=== PATIENT | female | born 2000 | race Caucasian/White ===

== ENCOUNTER 2021-01-05 13:58 | Outpatient (REF) | payer OTHER, SELFPAY ==
[2021-01-06 18:57] LABS: C. trachomatis RNA TMA NOT DETECTED (NOT DETECTED); N. gonorrhoeae RNA TMA NOT DETECTED (NOT DETECTED)
== END 2021-01-05 13:59 | disposition home or self-care (01) ==
LOC: HO.LAB 13:58
PROVIDERS: PCP Pediatrics; Visit Provider Advanced Practice Midwife
DX: Z01.419 Encounter for gynecological examination (general) (routine) without abnormal findings (principal); Z11.3 Encounter for screening for infections with a predominantly sexual mode of transmission
CPT/HCPCS: 36415; 87491; 87591; 88142

== ENCOUNTER → 2021-01-16 14:48 | Outpatient (BNVA) | payer OTHER, SELFPAY | PROVIDERS: PCP Pediatrics; Visit Provider Advanced Practice Midwife | DX: Z30.46 Encounter for surveillance of implantable subdermal contraceptive (principal); Z30.011 Encounter for initial prescription of contraceptive pills | CPT/HCPCS: 11982 ==

== ENCOUNTER 2022-04-20 03:02 | Emergency (ER) | payer OTHER, SELFPAY ==
--- NOTE | ~2022-04-20 | CT_ITS ---
EXAMINATION: CT HEAD WITHOUT CONTRAST CLINICAL INFORMATION: Headache, presyncope COMPARISON: None TECHNIQUE: Contiguous axial imaging was performed from the skull base to vertex without intravenous administration of contrast. This CT examination was performed using dose optimization techniques as appropriate, variously including the following: *Automated exposure control *Adjustment of mA and/or kV according to patient size (this includes techniques or standardized protocols for targeted exams where dose is matched to indication/reason for exam; i.e. extremities or head) *Use of iterative reconstruction technique DLP: 761 mGy-cm FINDINGS: There is no evidence of acute intracranial hemorrhage or territorial infarction. No abnormal mass effect or midline shift is seen. Olea to white matter differentiation is well preserved. No extra-axial fluid collections are identified. The ventricles are normal in size. There is no abnormal attenuation within the brain parenchyma. The osseous structures and soft tissues are normal. The mastoid air cells and visualized portions of the paranasal sinuses are well aerated. CT/CT head/brain wo con IMPRESSION: No acute intracranial pathology.
--- NOTE | ~2022-04-20 | XR_ITS ---
EXAMINATION: XR CHEST CLINICAL INFORMATION: Cough COMPARISON: None TECHNIQUE: 2 views of the chest were obtained. FINDINGS: The lungs are clear with no focal consolidation. No evidence of pneumothorax, pulmonary edema, or pleural effusions. The cardiomediastinal silhouette is unremarkable. No acute osseous findings. XR/XR chest 2V IMPRESSION: No acute cardiopulmonary findings.
[2022-04-20 03:22] VITALS: BP 141/65; PULSE 92; RESP 20; TEMP 36.8; O2SAT 97; BMI 41.3
[2022-04-20 03:40] LABS: Basophils Percent Auto 0.5 % (0-2); Eosinophils Absolute Auto 0.2 X10*3/uL (0.0-0.4); Eosinophils Percent Auto 1.9 % (0-4); Hematocrit 42.2 % (37.0-47.0); Hemoglobin 13.8 g/dl (12.0-16.0); Imm Gran Abs Auto 0.01 X10*3/uL (0.00-0.03); Imm Gran Pct Auto 0.1 % (0.0-0.4); Lymphocytes Absolute Auto 1.6 X10*3/uL (1.2-4.9); MANUAL DIFF FLAG NO; Mean Corpuscular HGB Conc 32.7 g/dl (31.0-35.0); Mean Corpuscular Hemoglobin 30.1 pg (27.0-33.0); Mean Corpuscular Volume 92.1 fL (80.0-98.0); Mean Platelet Volume 10.2 fL (9.4-12.3); Monocytes Percent Auto 11.9 % (2-11); Neutrophils Absolute Auto 5.5 x10*3/uL (2.0-8.3); Neutrophils Percent Auto 66.6 % (45-73); Platelet Count 253 X10*3/uL (160-400); Red Blood Count 4.58 X10*6/uL (4.20-5.50); Red Cell Distribution Width 12.5 % (11.0-16.0); White Blood Count 8.3 X10*3/uL (4.8-10.8)
--- NOTE | 2022-04-20 03:43 | ECG_ITS ---
Test Reason : SYNCOPE Blood Pressure : / mmHG Vent. Rate : 081 BPM Atrial Rate : 081 BPM P-R Int : 146 ms QRS Dur : 070 ms QT Int : 370 ms P-R-T Axes : 030 005 028 degrees QTc Int : 429 ms Normal sinus rhythm Minimal voltage criteria for LVH, may be normal variant ( R in aVL ) Borderline ECG No previous ECGs available Referred By: Benita Ortega Electronically Signed By:Rigo Mao
[2022-04-20 03:53] LABS: IDNOW Serial# 16C4AD1C; Influenza A Negative (Negative); Influenza B2 Negative (Negative)
[2022-04-20 03:54] LABS: COVID-19 Test Negative (Negative)
[2022-04-20 04:00] LABS: Anion Gap 13 (12-20); Blood Urea Nitrogen 8 mg/dL (9-16); Calcium 9.6 mg/dL (8.4-10.2); Carbon Dioxide 25 mmol/L (22-29); Chloride 104 mmol/L (96-108); Creatinine Clr Calc Pharmacy 118.1; Estimated Glomerular Filt Rate > 60; Glucose Random 110 mg/dL (60-115); Potassium 3.9 mmol/L (3.3-5.1); Sodium 138 mmol/L (135-145)
[2022-04-20 04:06] VITALS: BP 146/86; PULSE 89; RESP 20; TEMP 37; O2SAT 98
[2022-04-20 04:37] LABS: Troponin-I High Sensitivity < 3.5 ng/L (<3.5-17.0)
--- NOTE | 2022-04-20 04:44 | ED.GENADULT ---
HPI - General Adult General Chief complaint: General Medical <KAREN Fung - Last Filed: 04/20/22 06:35> Stated complaint: Syncope <KAREN Fung Last Filed: 04/20/22 06:35> Time Seen by Provider: 04/20/22 03:43 <KAREN Fung Last Filed: 04/20/22 06:35> Source: patient <KAREN Fung Last Filed: 04/20/22 06:35> Mode of arrival: ambulatory <KAREN Fung Last Filed: 04/20/22 06:35> Limitations: no limitations <KAREN Fung Last Filed: 04/20/22 06:35> History of Present Illness HPI narrative: 21-year-old female no significant medical history presents the emergency department with a presyncopal episode, upper respiratory symptoms, shortness of breath, chest pain and a headache x3 days. Patient tells me today she was at work, she was cleaning dishes and all the sudden she felt like her knees were giving out on her she felt like her vision went foggy and she felt lightheaded like she was going to pass out, she makes it very clear that she did not lose consciousness and she remembers the entire episode. She tells me this is never happened to her before. She denies any preceding symptoms. Patient reports that she has been feeling congested and has been having a cough of yellow/green sputum over the past 3 days. She also tells me that she is experiencing a severe headache to the frontal aspect of the head, she tells me this is not feel like her typical headache, she denies any vision changes, dizziness, head trauma. Patient tells me that she has been feeling short of breath over the past 3 days progressively worsening worse with exertion. She tells me her chest pain is substernal, nonradiating, has a hard time describing it and she tells me it is just there, has difficulty quantifying the pain. She is currently on control denies any recent long travel. No history of DVT or PE. Denies fevers or chills. <KAREN Fung Last Filed: 04/20/22 06:35> Onset (ago): day(s) (3) <KAREN Fung - Last Filed: 04/20/22 06:35> Radiation: non-radiation <KAREN Fung Last Filed: 04/20/22 06:35> Severity: moderate <KAREN Fung Last Filed: 04/20/22 06:35> Relieving factors: none <KAREN Fung Last Filed: 04/20/22 06:35> Exacerbating factors: none <KAREN Fung Last Filed: 04/20/22 06:35> Associated symptoms: chest pain and cough <KAREN Fung Last Filed: 04/20/22 06:35> Treatments prior to arrival: none <KAREN Fung Last Filed: 04/20/22 06:35> Related Data Home medications: Previous Rx's Medication Instructions Recorded levonorgestrel 0.15 mg-ethinyl 1 tab PO DAILY #91 ea 01/16/21 estradiol 30 mcg tablets,3 mos pack(91) ([facility]) azithromycin 250 mg tablet See Rx Instructions .ROUTE 04/20/22 .COMPLEX #6 tab <KAREN Fung Last Filed: 04/20/22 06:35> Allergies/adverse reactions: Allergies Allergy/AdvReac Type Severity Reaction Status Date / Time No Known Allergies Allergy Verified 04/20/22 04:13 <KAREN Fung Last Filed: 04/20/22 06:35> Review of Systems Review of Systems: Constitutional : No Weight loss, No Fever, No Chills, No Fatigue, No Malaise ENT/Mouth : No sore throat, No Rhinorrhea, +congestion Eyes: No Eye Pain, No Swelling, No Redness Cardiovascular : + Chest Pain, + SOB, + Dyspnea on Exertion, No Orthopnea, No Edema, No Palpitations Respiratory : + Cough, No Sputum, No Wheezing Gastrointestinal : No Nausea, No Vomiting, No Diarrhea, No Constipation, No abdominal Pain, No Hematochezia, No Melena Genitourinary : No Dysuria, No Urinary Frequency, No Hematuria, Musculoskeletal : No joint pain, No Myalgias, No Joint Swelling Skin : No Skin Lesions, No rash Neuro : No Weakness, No Numbness, No Dizziness, No Headache Psych : No Anxiety/Panic, No Depression All other systems reviewed and are negative <KAREN Fung - Last Filed: 04/20/22 06:35> Yes all other systems are reviewed and are negative <KAREN Fung - Last Filed: 04/20/22 06:35> [facility] Past Medical History Attestation statement: The following information was validated with the patient. <KAREN Fung - Last Filed: 04/20/22 06:35> Source: old records reviewed and nursing notes reviewed <KAREN Fung - Last Filed: 04/20/22 06:35> Medical History: Medical History Kidney stone <KAREN Fung - Last Filed: 04/20/22 06:35> Surgical History: Surgical History No history of previous surgery <KAREN Fung - Last Filed: 04/20/22 06:35> Social History Social History: Social History Alcohol intake: current Alcohol intake frequency: a few times a month Patient Tobacco Use Status: Never used Tobacco Use of substances other than those prescribed or required for medical reasons: Yes Substance Use Type: Marijuana Advance Directives: No Patient : No Gender identity: Female <KAREN Fung - Last Filed: 04/20/22 06:35> Physical Exam ED Vital Signs: Vital Signs - 24 hr 04/20/22 03:22 04/20/22 04:06 04/20/22 06:00 Temperature 98.3 F 98.6 F Pulse Rate 92 89 81 Respiratory Rate 20 20 20 Blood Pressure 141/65 H 146/86 H 141/92 H Pulse Oximetry 97 98 99 04/20/22 07:20 Temperature 98.2 F Pulse Rate 71 Respiratory Rate 16 Blood Pressure 130/76 Pulse Oximetry 97 BMI result Body Mass Index 41.3 VSS <KAREN Fung - Last Filed: 04/20/22 06:35> Vital Signs - 24 hr 04/20/22 03:22 04/20/22 04:06 04/20/22 06:00 Temperature 98.3 F 98.6 F Pulse Rate 92 89 81 Respiratory Rate 20 20 20 Blood Pressure 141/65 H 146/86 H 141/92 H Pulse Oximetry 97 98 99 04/20/22 07:20 Temperature 98.2 F Pulse Rate 71 Respiratory Rate 16 Blood Pressure 130/76 Pulse Oximetry 97 BMI result Body Mass Index 41.3 <Juan M Galan MD - Last Filed: 04/20/22 09:00> Appearance: Alert.? Oriented X3.? No acute distress.? Head: Normocephalic, atraumatic, no step-offs or deformities Eyes: Pupils equal, round and reactive to light.? ENT: Pharynx normal.? Neck: Normal inspection.? Neck supple.? CVS: Normal heart rate and rhythm.? Pulses normal.? Respiratory: No respiratory distress.? Breath sounds normal.? Abdomen: Soft and nontender.? Skin: Skin warm and dry.? Normal skin color.? Normal skin turgor.? Extremities: No lower extremity edema.? No calf ttp. 5/5 strength to bilateral upper and lower extremities Back: No midline tenderness, no C-spine tenderness, full range of motion, no CVA tenderness bilaterally Neuro: Oriented X 3.? No motor deficit.? No sensory deficit. CN 2-12 intact. Normal [id number], mqbk-[id number], steady tandem gait. Negative pronator drift <KAREN Fung - Last Filed: 04/20/22 06:35> Course Reevaluation(s) Reevaluation #1: CBC within normal limits. Chemistry with no acute electrolyte abnormalities. Troponin negative, EKG nonischemic unlikely ACS. COVID/influenza negative. Chest x-ray with no acute cardiopulmonary findings. Urine pending. D-dimer pending. Head CT pending. <KAREN Fung - Last Filed: 04/20/22 06:35> Time: 04:52 <KAREN Fung - Last Filed: 04/20/22 06:35> Reevaluation #2: D-dimer negative, PERC negative unlikely that this is PE/DVT. Head CT pending. <KAREN Fung - Last Filed: 04/20/22 06:35> Time: 05:06 <KAREN Fung - Last Filed: 04/20/22 06:35> Reevaluation #3: CT of the head with no acute findings. Patient now tells me she would like to be tested for strep throat as she is having a sore throat. Unlikely that this is strep however. Patient likely has an upper viral respiratory infection and had a presyncopal episode. Her cardiac workup was negative unlikely ACS, unlikely PE, unlikely pneumonia. Neuro exam is nonfocal, normal cerebellar function, normal head CT unlikely ICH/posterior infarct. Patient's headache likely secondary to congestion. Advised her to hydrate well, and return with new or worsening symptoms. Pending urine, improvement of symptoms, strep, influenza Sign out given to <KARNE Fung - Last Filed: 04/20/22 06:35> Time: 06: <KAREN Fung - Last Filed: 04/20/22 06:35> Consultations Consultation #1: I assumed care of this patient from my colleague, Belinda Frederick at 06:30 hours pending the patient's laboratory test. The patient's urinalysis was negative. The patient's influenza test was negative. The patient's rapid strep test was negative. The patient's headache did improve after the IV morphine. She states that her pain is down to a tolerable level and she is not wanting more medications. She is taking Excedrin migraine in the past for headaches. She was advised to continue taking these medications she was also advised to take ibuprofen as needed. Patient most likely has a viral illness, she was given printed and verbal instructions and discharged home. <Juan M Galan MD - Last Filed: 04/20/22 09:00> Medical Decision Making [facility] Narrative Medical decision making narrative: 042 21-year-old female no medical history presents with a presyncopal episode, chest pain, shortness of breath, headache, congestion, upper respiratory symptoms x3 days. Physical exam benign. Neuro exam nonfocal. Negative venus b/l Unlikely stroke or posterior stroke. Unlikely ACS as patient has no risk factors. Unlikely PE however D-dimer will be done. Unlikely ICH Plan at this time is labs, imaging, D-dimer, troponin, EKG, cardiac monitoring. Will rule out electrolyte abnormalities, PE, ACS, pneumonia, UTI, ich <KAREN Fung - Last Filed: 04/20/22 06:35> Medical Records Medical records reviewed: Yes I reviewed the patient's medical records. <KAREN Fung - Last Filed: 04/20/22 06:35> Lab Data Lab results reviewed: Yes I reviewed the patient's lab results. <KAREN Fung - Last Filed: 04/20/22 06:35> Result diagrams: : 04/20/22 03:32 04/20/22 03:32 <KAREN Fung - Last Filed: 04/20/22 06:35> Labs: Lab Results 04/20/22 04/20/22 04/20/22 Range/Units 03:32 03:32 03:32 WBC 8.3 (4.8-10.8) X10*3/uL RBC 4.58 (4.20-5.50) X10*6/uL Hgb 13.8 (12.0-16.0) g/dl Hct 42.2 (37.0-47.0) % MCV 92.1 (80.0-98.0) fL MCH 30.1 (27.0-33.0) pg MCHC 32.7 (31.0-35.0) g/dl RDW 12.5 (11.0-16.0) % Plt Count 253 (160-400) X10*3/uL MPV 10.2 (9.4-12.3) fL Immature Gran % (Auto) 0.1 (0.0-0.4) % Neut % (Auto) 66.6 (45-73) % Lymph % (Auto) 19.0 L (20-40) % [place] % (Auto) 11.9 H (2-11) % Eos % (Auto) 1.9 (0-4) % Baso % (Auto) 0.5 (0-2) % Lymph # (Auto) 1.6 (1.2-4.9) X10*3/uL [place] # (Auto) 1.0 (0.1-1.2) X10*3/uL Eos # (Auto) 0.2 (0.0-0.4) X10*3/uL Baso # (Auto) 0.0 (0.0-0.2) X10*3/uL Abs Immat Gran (auto) 0.01 (0.00-0.03) X10*3/uL Absolute Neuts (auto) 5.5 (2.0-8.3) x10*3/uL Absolute Nucleated RBC 0.000 (0.0-0.012) X10*3/uL Nucleated RBC % (auto) 0.0 (0.0-0.2) /100WBC D-Dimer High Sensitivty NG/ML Sodium 138 (135-145) mmol/L Potassium 3.9 (3.3-5.1) mmol/L Chloride 104 (96-108) mmol/L Carbon Dioxide 25 (22-29) mmol/L Anion Gap 13 (12-20) BUN 8 L (9-16) mg/dL Creatinine 0.80 (0.5-1.4) mg/dL Estim Creat Clear Calc 118.1 Estimated GFR > 60 Random Glucose 110 (60-115) mg/dL Calcium 9.6 (8.4-10.2) mg/dL Troponin I High Sens (<3.5-17.0) ng/L Urine Color Urine Appearance Urine pH (5.0-8.0) Ur Specific [place] (1.005-1.025) Urine Protein (NEG-TRACE) MG/DL Urine Glucose (UA) (NEG) MG/DL Urine Ketones (NEG) MG/DL Urine Blood (NEG) Urine Nitrite (NEG) Ur Leukocyte Esterase (NEG) Urine RBC (0) /HPF Urine WBC (0-4) /HPF Ur Squamous Epith Cells /LPF Urine Bacteria /LPF COVID-19 (YULI) (Negative) COVID-19 Clin Com Influenza Type A (PERLA) Negative (Negative) Influenza Type B (PERLA) Negative (Negative) Influenza A & B Note See Note S. pyogenes GrpA PERLA (Negative) 04/20/22 04/20/22 04/20/22 Range/Units 03:32 03:34 04:39 WBC (4.8-10.8) X10*3/uL RBC (4.20-5.50) X10*6/uL Hgb (12.0-16.0) g/dl Hct (37.0-47.0) % MCV (80.0-98.0) fL MCH (27.0-33.0) pg MCHC (31.0-35.0) g/dl RDW (11.0-16.0) % Plt Count (160-400) X10*3/uL MPV (9.4-12.3) fL Immature Gran % (Auto) (0.0-0.4) % Neut % (Auto) (45-73) % Lymph % (Auto) (20-40) % [place] % (Auto) (2-11) % Eos % (Auto) (0-4) % Baso % (Auto) (0-2) % Lymph # (Auto) (1.2-4.9) X10*3/uL [place] # (Auto) (0.1-1.2) X10*3/uL Eos # (Auto) (0.0-0.4) X10*3/uL Baso # (Auto) (0.0-0.2) X10*3/uL Abs Immat Gran (auto) (0.00-0.03) X10*3/uL Absolute Neuts (auto) (2.0-8.3) x10*3/uL Absolute Nucleated RBC (0.0-0.012) X10*3/uL Nucleated RBC % (auto) (0.0-0.2) /100WBC D-Dimer High Sensitivty < 150 NG/ML Sodium (135-145) mmol/L Potassium (3.3-5.1) mmol/L Chloride (96-108) mmol/L Carbon Dioxide (22-29) mmol/L Anion Gap (12-20) BUN (9-16) mg/dL Creatinine (0.5-1.4) mg/dL Estim Creat Clear Calc Estimated GFR Random Glucose (60-115) mg/dL Calcium (8.4-10.2) mg/dL Troponin I High Sens < 3.5 (<3.5-17.0) ng/L Urine Color Urine Appearance Urine pH (5.0-8.0) Ur Specific [place] (1.005-1.025) Urine Protein (NEG-TRACE) MG/DL Urine Glucose (UA) (NEG) MG/DL Urine Ketones (NEG) MG/DL Urine Blood (NEG) Urine Nitrite (NEG) Ur Leukocyte Esterase (NEG) Urine RBC (0) /HPF Urine WBC (0-4) /HPF Ur Squamous Epith Cells /LPF Urine Bacteria /LPF COVID-19 (YULI) Negative (Negative) COVID-19 Clin Com See Note Influenza Type A (PERLA) (Negative) Influenza Type B (PERLA) (Negative) Influenza A & B Note S. pyogenes GrpA PERLA (Negative) 04/20/22 04/20/22 04/20/22 Range/Units 07:14 07:15 07:15 WBC (4.8-10.8) X10*3/uL RBC (4.20-5.50) X10*6/uL Hgb (12.0-16.0) g/dl Hct (37.0-47.0) % MCV (80.0-98.0) fL MCH (27.0-33.0) pg MCHC (31.0-35.0) g/dl RDW (11.0-16.0) % Plt Count (160-400) X10*3/uL MPV (9.4-12.3) fL Immature Gran % (Auto) (0.0-0.4) % Neut % (Auto) (45-73) % Lymph % (Auto) (20-40) % [place] % (Auto) (2-11) % Eos % (Auto) (0-4) % Baso % (Auto) (0-2) % Lymph # (Auto) (1.2-4.9) X10*3/uL [place] # (Auto) (0.1-1.2) X10*3/uL Eos # (Auto) (0.0-0.4) X10*3/uL Baso # (Auto) (0.0-0.2) X10*3/uL Abs Immat Gran (auto) (0.00-0.03) X10*3/uL Absolute Neuts (auto) (2.0-8.3) x10*3/uL Absolute Nucleated RBC (0.0-0.012) X10*3/uL Nucleated RBC % (auto) (0.0-0.2) /100WBC D-Dimer High Sensitivty NG/ML Sodium (135-145) mmol/L Potassium (3.3-5.1) mmol/L Chloride (96-108) mmol/L Carbon Dioxide (22-29) mmol/L Anion Gap (12-20) BUN (9-16) mg/dL Creatinine (0.5-1.4) mg/dL Estim Creat Clear Calc Estimated GFR Random Glucose (60-115) mg/dL Calcium (8.4-10.2) mg/dL Troponin I High Sens (<3.5-17.0) ng/L Urine Color STRAW Urine Appearance CLEAR Urine pH 6.0 (5.0-8.0) Ur Specific [place] 1.010 (1.005-1.025) Urine Protein NEG (NEG-TRACE) MG/DL Urine Glucose (UA) NEG (NEG) MG/DL Urine Ketones NEG (NEG) MG/DL Urine Blood 1+ H (NEG) Urine Nitrite NEG (NEG) Ur Leukocyte Esterase NEG (NEG) Urine RBC 1-4 (0) /HPF Urine WBC 0-2 (0-4) /HPF Ur Squamous Epith Cells TRACE /LPF Urine Bacteria TRACE /LPF COVID-19 (YULI) (Negative) COVID-19 Clin Com Influenza Type A (PERLA) Negative (Negative) Influenza Type B (PERLA) Negative (Negative) Influenza A & B Note See Note S. pyogenes GrpA PERLA Invalid (Negative) 04/20/22 Range/Units 08:19 WBC (4.8-10.8) X10*3/uL RBC (4.20-5.50) X10*6/uL Hgb (12.0-16.0) g/dl Hct (37.0-47.0) % MCV (80.0-98.0) fL MCH (27.0-33.0) pg MCHC (31.0-35.0) g/dl RDW (11.0-16.0) % Plt Count (160-400) X10*3/uL MPV (9.4-12.3) fL Immature Gran % (Auto) (0.0-0.4) % Neut % (Auto) (45-73) % Lymph % (Auto) (20-40) % [place] % (Auto) (2-11) % Eos % (Auto) (0-4) % Baso % (Auto) (0-2) % Lymph # (Auto) (1.2-4.9) X10*3/uL [place] # (Auto) (0.1-1.2) X10*3/uL Eos # (Auto) (0.0-0.4) X10*3/uL Baso # (Auto) (0.0-0.2) X10*3/uL Abs Immat Gran (auto) (0.00-0.03) X10*3/uL Absolute Neuts (auto) (2.0-8.3) x10*3/uL Absolute Nucleated RBC (0.0-0.012) X10*3/uL Nucleated RBC % (auto) (0.0-0.2) /100WBC D-Dimer High Sensitivty NG/ML Sodium (135-145) mmol/L Potassium (3.3-5.1) mmol/L Chloride (96-108) mmol/L Carbon Dioxide (22-29) mmol/L Anion Gap (12-20) BUN (9-16) mg/dL Creatinine (0.5-1.4) mg/dL Estim Creat Clear Calc Estimated GFR Random Glucose (60-115) mg/dL Calcium (8.4-10.2) mg/dL Troponin I High Sens (<3.5-17.0) ng/L Urine Color Urine Appearance Urine pH (5.0-8.0) Ur Specific [place] (1.005-1.025) Urine Protein (NEG-TRACE) MG/DL Urine Glucose (UA) (NEG) MG/DL Urine Ketones (NEG) MG/DL Urine Blood (NEG) Urine Nitrite (NEG) Ur Leukocyte Esterase (NEG) Urine RBC (0) /HPF Urine WBC (0-4) /HPF Ur Squamous Epith Cells /LPF Urine Bacteria /LPF COVID-19 (YULI) (Negative) COVID-19 Clin Com Influenza Type A (PERLA) (Negative) Influenza Type B (PERLA) (Negative) Influenza A & B Note S. pyogenes GrpA PERLA Negative (Negative) <KAREN Fung - Last Filed: 04/20/22 06:35> Lab Results 04/20/22 04/20/22 04/20/22 Range/Units 03:32 03:32 03:32 WBC 8.3 (4.8-10.8) X10*3/uL RBC 4.58 (4.20-5.50) X10*6/uL Hgb 13.8 (12.0-16.0) g/dl Hct 42.2 (37.0-47.0) % MCV 92.1 (80.0-98.0) fL MCH 30.1 (27.0-33.0) pg MCHC 32.7 (31.0-35.0) g/dl RDW 12.5 (11.0-16.0) % Plt Count 253 (160-400) X10*3/uL MPV 10.2 (9.4-12.3) fL Immature Gran % (Auto) 0.1 (0.0-0.4) % Neut % (Auto) 66.6 (45-73) % Lymph % (Auto) 19.0 L (20-40) % [place] % (Auto) 11.9 H (2-11) % Eos % (Auto) 1.9 (0-4) % Baso % (Auto) 0.5 (0-2) % Lymph # (Auto) 1.6 (1.2-4.9) X10*3/uL [place] # (Auto) 1.0 (0.1-1.2) X10*3/uL Eos # (Auto) 0.2 (0.0-0.4) X10*3/uL Baso # (Auto) 0.0 (0.0-0.2) X10*3/uL Abs Immat Gran (auto) 0.01 (0.00-0.03) X10*3/uL Absolute Neuts (auto) 5.5 (2.0-8.3) x10*3/uL Absolute Nucleated RBC 0.000 (0.0-0.012) X10*3/uL Nucleated RBC % (auto) 0.0 (0.0-0.2) /100WBC D-Dimer High Sensitivty NG/ML Sodium 138 (135-145) mmol/L Potassium 3.9 (3.3-5.1) mmol/L Chloride 104 (96-108) mmol/L Carbon Dioxide 25 (22-29) mmol/L Anion Gap 13 (12-20) BUN 8 L (9-16) mg/dL Creatinine 0.80 (0.5-1.4) mg/dL Estim Creat Clear Calc 118.1 Estimated GFR > 60 Random Glucose 110 (60-115) mg/dL Calcium 9.6 (8.4-10.2) mg/dL Troponin I High Sens (<3.5-17.0) ng/L Urine Color Urine Appearance Urine pH (5.0-8.0) Ur Specific [place] (1.005-1.025) Urine Protein (NEG-TRACE) MG/DL Urine Glucose (UA) (NEG) MG/DL Urine Ketones (NEG) MG/DL Urine Blood (NEG) Urine Nitrite (NEG) Ur Leukocyte Esterase (NEG) Urine RBC (0) /HPF Urine WBC (0-4) /HPF Ur Squamous Epith Cells /LPF Urine Bacteria /LPF COVID-19 (YULI) (Negative) COVID-19 Clin Com Influenza Type A (PERLA) Negative (Negative) Influenza Type B (PERLA) Negative (Negative) Influenza A & B Note See Note S. pyogenes GrpA PERLA (Negative) 04/20/22 04/20/22 04/20/22 Range/Units 03:32 03:34 04:39 WBC (4.8-10.8) X10*3/uL RBC (4.20-5.50) X10*6/uL Hgb (12.0-16.0) g/dl Hct (37.0-47.0) % MCV (80.0-98.0) fL MCH (27.0-33.0) pg MCHC (31.0-35.0) g/dl RDW (11.0-16.0) % Plt Count (160-400) X10*3/uL MPV (9.4-12.3) fL Immature Gran % (Auto) (0.0-0.4) % Neut % (Auto) (45-73) % Lymph % (Auto) (20-40) % [place] % (Auto) (2-11) % Eos % (Auto) (0-4) % Baso % (Auto) (0-2) % Lymph # (Auto) (1.2-4.9) X10*3/uL [place] # (Auto) (0.1-1.2) X10*3/uL Eos # (Auto) (0.0-0.4) X10*3/uL Baso # (Auto) (0.0-0.2) X10*3/uL Abs Immat Gran (auto) (0.00-0.03) X10*3/uL Absolute Neuts (auto) (2.0-8.3) x10*3/uL Absolute Nucleated RBC (0.0-0.012) X10*3/uL Nucleated RBC % (auto) (0.0-0.2) /100WBC D-Dimer High Sensitivty < 150 NG/ML Sodium (135-145) mmol/L Potassium (3.3-5.1) mmol/L Chloride (96-108) mmol/L Carbon Dioxide (22-29) mmol/L Anion Gap (12-20) BUN (9-16) mg/dL Creatinine (0.5-1.4) mg/dL Estim Creat Clear Calc Estimated GFR Random Glucose (60-115) mg/dL Calcium (8.4-10.2) mg/dL Troponin I High Sens < 3.5 (<3.5-17.0) ng/L Urine Color Urine Appearance Urine pH (5.0-8.0) Ur Specific [place] (1.005-1.025) Urine Protein (NEG-TRACE) MG/DL Urine Glucose (UA) (NEG) MG/DL Urine Ketones (NEG) MG/DL Urine Blood (NEG) Urine Nitrite (NEG) Ur Leukocyte Esterase (NEG) Urine RBC (0) /HPF Urine WBC (0-4) /HPF Ur Squamous Epith Cells /LPF Urine Bacteria /LPF COVID-19 (YULI) Negative (Negative) COVID-19 Clin Com See Note Influenza Type A (PERLA) (Negative) Influenza Type B (PERLA) (Negative) Influenza A & B Note S. pyogenes GrpA PERLA (Negative) 04/20/22 04/20/22 04/20/22 Range/Units 07:14 07:15 07:15 WBC (4.8-10.8) X10*3/uL RBC (4.20-5.50) X10*6/uL Hgb (12.0-16.0) g/dl Hct (37.0-47.0) % MCV (80.0-98.0) fL MCH (27.0-33.0) pg MCHC (31.0-35.0) g/dl RDW (11.0-16.0) % Plt Count (160-400) X10*3/uL MPV (9.4-12.3) fL Immature Gran % (Auto) (0.0-0.4) % Neut % (Auto) (45-73) % Lymph % (Auto) (20-40) % [place] % (Auto) (2-11) % Eos % (Auto) (0-4) % Baso % (Auto) (0-2) % Lymph # (Auto) (1.2-4.9) X10*3/uL [place] # (Auto) (0.1-1.2) X10*3/uL Eos # (Auto) (0.0-0.4) X10*3/uL Baso # (Auto) (0.0-0.2) X10*3/uL Abs Immat Gran (auto) (0.00-0.03) X10*3/uL Absolute Neuts (auto) (2.0-8.3) x10*3/uL Absolute Nucleated RBC (0.0-0.012) X10*3/uL Nucleated RBC % (auto) (0.0-0.2) /100WBC D-Dimer High Sensitivty NG/ML Sodium (135-145) mmol/L Potassium (3.3-5.1) mmol/L Chloride (96-108) mmol/L Carbon Dioxide (22-29) mmol/L Anion Gap (12-20) BUN (9-16) mg/dL Creatinine (0.5-1.4) mg/dL Estim Creat Clear Calc Estimated GFR Random Glucose (60-115) mg/dL Calcium (8.4-10.2) mg/dL Troponin I High Sens (<3.5-17.0) ng/L Urine Color STRAW Urine Appearance CLEAR Urine pH 6.0 (5.0-8.0) Ur Specific [place] 1.010 (1.005-1.025) Urine Protein NEG (NEG-TRACE) MG/DL Urine Glucose (UA) NEG (NEG) MG/DL Urine Ketones NEG (NEG) MG/DL Urine Blood 1+ H (NEG) Urine Nitrite NEG (NEG) Ur Leukocyte Esterase NEG (NEG) Urine RBC 1-4 (0) /HPF Urine WBC 0-2 (0-4) /HPF Ur Squamous Epith Cells TRACE /LPF Urine Bacteria TRACE /LPF COVID-19 (YULI) (Negative) COVID-19 Clin Com Influenza Type A (PERLA) Negative (Negative) Influenza Type B (PERLA) Negative (Negative) Influenza A & B Note See Note S. pyogenes GrpA PERLA Invalid (Negative) 04/20/22 Range/Units 08:19 WBC (4.8-10.8) X10*3/uL RBC (4.20-5.50) X10*6/uL Hgb (12.0-16.0) g/dl Hct (37.0-47.0) % MCV (80.0-98.0) fL MCH (27.0-33.0) pg MCHC (31.0-35.0) g/dl RDW (11.0-16.0) % Plt Count (160-400) X10*3/uL MPV (9.4-12.3) fL Immature Gran % (Auto) (0.0-0.4) % Neut % (Auto) (45-73) % Lymph % (Auto) (20-40) % [place] % (Auto) (2-11) % Eos % (Auto) (0-4) % Baso % (Auto) (0-2) % Lymph # (Auto) (1.2-4.9) X10*3/uL [place] # (Auto) (0.1-1.2) X10*3/uL Eos # (Auto) (0.0-0.4) X10*3/uL Baso # (Auto) (0.0-0.2) X10*3/uL Abs Immat Gran (auto) (0.00-0.03) X10*3/uL Absolute Neuts (auto) (2.0-8.3) x10*3/uL Absolute Nucleated RBC (0.0-0.012) X10*3/uL Nucleated RBC % (auto) (0.0-0.2) /100WBC D-Dimer High Sensitivty NG/ML Sodium (135-145) mmol/L Potassium (3.3-5.1) mmol/L Chloride (96-108) mmol/L Carbon Dioxide (22-29) mmol/L Anion Gap (12-20) BUN (9-16) mg/dL Creatinine (0.5-1.4) mg/dL Estim Creat Clear Calc Estimated GFR Random Glucose (60-115) mg/dL Calcium (8.4-10.2) mg/dL Troponin I High Sens (<3.5-17.0) ng/L Urine Color Urine Appearance Urine pH (5.0-8.0) Ur Specific [place] (1.005-1.025) Urine Protein (NEG-TRACE) MG/DL Urine Glucose (UA) (NEG) MG/DL Urine Ketones (NEG) MG/DL Urine Blood (NEG) Urine Nitrite (NEG) Ur Leukocyte Esterase (NEG) Urine RBC (0) /HPF Urine WBC (0-4) /HPF Ur Squamous Epith Cells /LPF Urine Bacteria /LPF COVID-19 (YULI) (Negative) COVID-19 Clin Com Influenza Type A (PERLA) (Negative) Influenza Type B (PERLA) (Negative) Influenza A & B Note S. pyogenes GrpA PERLA Negative (Negative) <Juan M Galan MD - Last Filed: 04/20/22 09:00> ECG Data Attestation: I personally reviewed and interpreted this ECG as follows: <KAREN Fung - Last Filed: 04/20/22 06:35> Prior ECG tracings: not available for review <KAREN Fung - Last Filed: 04/20/22 06:35> Interpretation: Ventricular rate of 81, FL normal, QRS normal, QT/QTC normal. EKG shows normal sinus rhythm. No ST elevations or inversions concerning for ischemia. No previous EKGs to compare with. <KAREN Fung - Last Filed: 04/20/22 06:35> Critical Care Time Critical Care Time Critical Care Time: No <KAREN Fung Last Filed: 04/20/22 06:35> Discharge Plan Discharge Clinical Impression: Pre-syncope, Upper respiratory infection, viral, Headache, Chest pain not due to acute coronary syndrome, Shortness of breath <KAREN Fung Last Filed: 04/20/22 06:35> Patient Disposition: Home, Self-Care <KAREN Fung Last Filed: 04/20/22 06:35> Instructions: Chest Pain (ED), Upper Respiratory Infection (DC), Acute Headache (ED), Near Syncope (ED), Shortness of Breath (ED) <KAREN Fung Last Filed: 04/20/22 06:35> Additional Instructions: Take Excedrin migraine as prescribed on the bottle as needed for your headaches. You can also take ibuprofen 200 mg pills, 3 pills every 6 hours as needed for pain or fever Take Zithromax as prescribed. Follow-up with your primary care provider this week. Return to the emergency department with new or worsening symptoms. Such as fevers, chills, chest pain, shortness of breath, nausea, vomiting, dizziness, headache, vision changes, lethargy In case of emergency call 911 Drink plenty of fluids. <KAREN Fung Last Filed: 04/20/22 06:35> Prescriptions: New azithromycin 250 mg tablet See Rx Instructions .ROUTE .COMPLEX Qty: 6 0RF Rx Instructions: For 250 mg dose pack: take 500 mg today (day 1), then 250 mg for 4 days (days 2-5) No Action levonorgestrel-ethinyl estrad [Jolessa] 0.15 mg-30 mcg (91) tablets,dose pack,3 month 1 tab PO DAILY Qty: 91 1RF <KAREN Fung Last Filed: 04/20/22 06:35> Referrals: Physician,None [Primary Care Provider] - 2 days <KAREN Fung Last Filed: 04/20/22 06:35> Stand Alone Forms: Work/School Release <KAREN Fung Last Filed: 04/20/22 06:35>
[2022-04-20 05:00] LABS: D Dimer High Sensitivity < 150 NG/ML
[2022-04-20] MEDS: Ketorolac Tromethamine 15 MG/ML VIAL 30 MG IM (05:00)
[2022-04-20] MEDS: 0.9 % Sodium Chloride 1,000 ML 999 ML IV ×2 (05:38→06:47)
[2022-04-20 06:00] VITALS: BP 141/92; PULSE 81; RESP 20; O2SAT 99
[2022-04-20] MEDS: Morphine Sulfate 4 MG/ML CARTRIDGE IVPUSH (06:47)
--- NOTE | 2022-04-20 07:10 | PC.NURSE ---
ambulating to and from restroom w steady gait for ua spec.
[2022-04-20 07:20] VITALS: BP 130/76; PULSE 71; RESP 16; TEMP 36.8; O2SAT 97
[2022-04-20 07:28] LABS: Appearance Urine CLEAR; Color Urine STRAW; Glucose Urine UA NEG (NEG); Leukocyte Esterase Urine NEG (NEG); Nitrite Urine NEG (NEG); UACC Culture Trigger NO; Urine Blood 1+ (NEG); Urine Ketones NEG (NEG); Urine Protein NEG (NEG-TRACE)
[2022-04-20 07:39] LABS: Strep A Nucleic Acid Invalid (Negative)
[2022-04-20 07:42] LABS: IDNOW Serial# 16C4AD1C; Influenza A Negative (Negative); Influenza B2 Negative (Negative)
[2022-04-20 07:56] LABS: Bacteria Urine TRACE /LPF; Squamous Epithelial Cell Urine TRACE /LPF; WBC Urine 0-2 /HPF (0-4)
[2022-04-20 08:31] LABS: Strep A Nucleic Acid Negative (Negative)
== END 2022-04-20 09:25 | disposition home or self-care (01) ==
PROVIDERS: Emergency Medicine; Physician Assistant; Emergency Provider Emergency Medicine Emergency Medical Services
DX: R55 Syncope and collapse (principal); J06.9 Acute upper respiratory infection, unspecified; R51.9 Headache, unspecified; R07.89 Other chest pain; R06.02 Shortness of breath; Z20.822 Contact with and (suspected) exposure to COVID-19
CPT/HCPCS: 36415; 70450; 71046; 80048; 81001; 84484; 85025; 85379; 87502; 87635; 87651; 93005; 96361; 96372; 96374; 99284; J1885; J2270